=== PATIENT | female | born 1985 | race Caucasian/White ===

== ENCOUNTER 2017-10-23 21:04 | Emergency (ER) | payer BC ==
[2017-10-24] MEDS ORDERED: Oseltamivir CAP* 75 MG CAP PO ONE (00:15)
[2017-10-24 00:58] VITALS: BP 99/60
--- NOTE | 2017-10-24 06:02 | ED ---
Perry Khan Angela, scribed for Zoran Ellington MD on 10/24/17 at 0013 . Complex/Multi-Sys Presentation - HPI Summary HPI Summary: This pt is a 31 y/o female presenting to [facility] c/o muscle aches, chills, and shakiness since last night. 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 Pt states after she had a chance to sit down, she felt muscle aches, cold, and shaky. Pt went home and went to bed. Upon waking up this morning, the pt felt the same but still came to work this morning. She describes a burning kind of feeling when breathing, like "breathing in cold air. " Pt also states having intermittent cough. She denies fever, SOB. Pt took her temperature this morning. Pt has received the flu vaccine this year. LMP: roughly 1 month ago. Denies probability of . PMHx: asthma, bipolar. She denies tobacco or alcohol use. - History Of Current Complaint Chief Complaint: EDShortnessOfBreath Time Seen by Provider: 10/24/17 00:06 Hx Obtained From: Patient Onset/Duration: Lasting Days - 1, Still Present Timing: Days - 1 Severity Currently: Moderate Associated Signs And Symptoms: Positive: Cough - intermittent, Other - POS: muscle aches, chills, shakiness. Negative: SOB, Fever - Allergies/Home Medications Allergies/Adverse Reactions: Allergies Allergy/AdvReac Type Severity Reaction Status Date / Time Cefuroxime [From Ceftin] Allergy Rash Verified 10/23/17 21:14 Erythromycin Allergy Rash Verified 10/23/17 21:14 Penicillins [PCN] Allergy Rash Verified 10/23/17 21:13 Shellfish Allergy Allergy Swelling Verified 10/23/17 21:14 PMH/Surg Hx/FS Hx/Imm Hx Endocrine/Hematology History: Denies: Hx Diabetes Respiratory History: Reports: Hx Asthma Psychiatric History: Reports: Hx Bipolar Disorder - Immunization History Date of Influenza Vaccine: this season Infectious Disease History: No Infectious Disease History: Denies: Traveled Outside the [place] in Last 30 Days - Family History Known Family History: Positive: Hypertension - Father, Diabetes - maternal grandmother Negative: Cardiac Disease - Social History Occupation: Employed Full-time - RT at [employer] [employer] [facility] [place] Alcohol Use: None Substance Use Type: Reports: None Smoking Status (MU): Never Smoked Tobacco Review of Systems Constitutional: Other - "shakiness" Positive: Chills. Negative: Fever Positive: Cough. Negative: Shortness Of Breath Positive: Myalgia All Other Systems Reviewed And Are Negative: Yes Physical Exam - Summary Physical Exam Summary: Appearance: Well appearing, no pain distress Skin: warm, dry, reflects adequate perfusion Head/face: normal Eyes: EOMI, RENEA ENT: normal Neck: supple, non-tender Respiratory: CTA, breath sounds present Cardiovascular: RRR, pulses symmetrical Abdomen: non-tender, soft Bowel: present Musculoskeletal: normal, strength/ROM intact Neuro: normal, sensory motor intact, A&Ox3 Triage Information Reviewed: Yes Vital Signs On Initial Exam: Initial Vitals Temp Pulse Resp BP Pulse Ox 98.6 F 84 22 118/82 100 10/23/17 21:08 10/23/17 21:08 10/23/17 21:08 10/23/17 21:08 10/23/17 21:08 Vital Signs Reviewed: Yes Diagnostics - Vital Signs Vital Signs Temp Pulse Resp BP Pulse Ox 10/23/17 23:46 88 99 10/23/17 23:44 111/74 10/23/17 23:34 67 16 111/80 100 10/23/17 21:08 98.6 F 84 22 118/82 100 - Laboratory Lab Results: Lab Results 10/24/17 Range/Units 00:36 Influenza A (Rapid) Negative (Negative) Influenza B (Rapid) Negative (Negative) Diagnostic Studies Comment: flu neg Lab Statement: Any lab studies that have been ordered have been reviewed, and results considered in the medical decision making process. Complex Multi-Symp Course/Dx Course Of Treatment: pt with FLU like illness. Flu testing NEG but high likelihood of illness. 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 - Diagnoses Provider Diagnoses: Influenza-like illness Discharge - Discharge Plan Condition: Good Disposition: HOME Prescriptions: Oseltamivir CAP* [Tamiflu CAP*] 75 mg PO BID #9 cap Forms: *Work Release Referrals: Stef Alejandro DO [Primary Care Provider] - Additional Instructions: Return if worse, trouble breathing, high fever or other concerns. Stay well hydrated. Use OTC cough/cold meds as needed. Ibuprofen. The documentation as recorded by the Perry king Angela accurately reflects the service I personally performed and the decisions made by me, Zoran Ellington MD.
== END 2017-10-24 00:55 | disposition home or self-care (01) ==
LOC: ED 21:04
DX: J11.1 Influenza due to unidentified influenza virus with other respiratory manifestations (principal); R05 Cough
CPT/HCPCS: 87502; 99283; A9270-GY

== ENCOUNTER 2024-07-22 08:09 | Inpatient (IN) ==
[2024-07-22] MEDS: Famotidine IV 10 MG/ML 2 ml VIAL (20 mg) IV SLOW PU ONE (08:32)
[2024-07-22] MEDS: methylPREDNISolone SOD SUCC 125 mg 2 ML VIAL IV ONE (08:32)
[2024-07-22] MEDS ORDERED: EPINEPHrine Anaphylaxis SYR CERTADOSE SYR KIT ONE (09:04)
[2024-07-22] MEDS ORDERED: Albuterol/Ipratropium NEB.SOL (2.5/0.5 MG) 3 ML NEB.SOLN ONE (09:07)
[2024-07-22] MEDS: Ondansetron 4 mg VIAL 2 MG/ML 2 ml VIAL IV ONE (09:08)
[2024-07-22] MEDS ORDERED: EPINEPHrine,Rac 2.25% NEB.SOL 0.5 ML ONE (09:14)
[2024-07-22] MEDS ORDERED: EPINEPHrine SYR 0.1MG/ML 10 ml SYRINGE IV ONE (09:15)
[2024-07-22] MEDS ORDERED: Famotidine IV 10 MG/ML 2 ml VIAL (20 mg) ONE (09:15)
[2024-07-22 09:42] LABS: ABS Eosinophils 0.1 10^3/uL (0.0-0.5); ABS Monocytes 0.6 10^3/uL (0.0-0.9); ABS Neutrophils 6.9 10^3/uL (1.5-7.6); ABS Nucleated RBC 0.01 10^3/ul; Eosinophil % 0.8 %; Hematocrit 42.7 % (35-45); Hemoglobin 14.1 g/dL (11.5-14.3); Lymphocyte % 28.5 %; Mean Corpuscular Hemoglobin 29.8 pg (27-33); Mean Corpuscular Hgb Conc 33.1 g/dL (31-36); Mean Platelet Volume 9.6 fL (7.5-11.2); Nucleated Red Blood Cells % 0.1 %/100WBC (0.0-0.8); Platelet Count 287 10^3/uL (150-450); Red Blood Count 4.74 10^6/uL (3.63-4.92); Red Cell Distribution Width 13.6 % (12-17); White Blood Count 10.7 10^3/uL (3.8-11.8)
[2024-07-22] MEDS: LORazepam 2 mg VIAL 1 ml IV PUSH ONE ×3 (10:02→14:48)
[2024-07-22] MEDS: EPINEPHrine,Rac 2.25% NEB.SOL 0.5 ML INH ONE (10:05)
[2024-07-22 10:06] LABS: Calcium 9.3 mg/dL (8.6-10.3); Creatinine, Serum 0.66 mg/dL (0.51-0.95); Potassium 3.6 mmol/L (3.5-5.0); eGFR CKD-EPI 115.1 (>60)
[2024-07-22] MEDS: EPINEPHrine,Rac 2.25% NEB.SOL 0.5 ML ONE (10:22)
[2024-07-22] MEDS: LORazepam 2 mg VIAL 1 ml ONE (10:22)
[2024-07-22] MEDS ORDERED: Lorazepam PYXIS KEY PRN ×3 (10:25→15:15)
[2024-07-22 16:26] VITALS: BP 136/70
== END 2024-07-22 17:19 | disposition home or self-care (01) | DRG 811 ==
LOC: ED 08:09 → EDHOLD 09:18 → ICU 09:45
PROVIDERS: ADMIT Internal Medicine Critical Care Medicine; ATTEND Internal Medicine Critical Care Medicine